=== PATIENT | male | born 1960 | race Caucasian/White ===

== ENCOUNTER 2016-07-10 11:51 | Emergency (ER) | payer MEDICAID ==
[2016-07-10 13:37] LABS: BASOPHILS 0.2 % (0.0-2.0); EOSINOPHILS 0.6 % (0-7); HEMATOCRIT 47.4 % (42.0-54.0); HEMOGLOBIN 16.1 g/dL (13.5-17.5); IMMATURE GRANULOCYTES 0.3 % (0-5); MCH 32.3 pg (26.0-34.0); MCV 95.2 fL (80.0-100.0); MEAN PLATELET VOLUME 10.6 fL (7.4-10.4); MONOCYTES 8.1 % (2-11); NEUTROPHILS 71.8 % (40-80); PLATELET COUNT 238 10x3/uL (130-400); RBC 4.98 10x6/uL (4.20-6.10); RDW 12.5 % (11.5-14.5); WBC 9.4 10x3/uL (4.8-10.8)
== END 2016-07-10 15:40 | disposition home or self-care (01) ==
LOC: D.ER 11:51
PROVIDERS: Emergency Medicine
DX: J20.9 Acute bronchitis, unspecified (principal); S20.211A Contusion of right front wall of thorax, initial encounter; W19.XXXA Unspecified fall, initial encounter; Y93.9 Activity, unspecified; Y92.019 Unspecified place in single-family (private) house as the place of occurrence of the external cause

== ENCOUNTER 2018-12-28 19:07 | Emergency (ER) | payer MEDICAID ==
[~2018-12-28] VITALS: Ht 182.9 cm; Wt 77.3 kg
[2018-12-28 19:18] VITALS: Ht 182.9 cm; Wt 77.3 kg
[2018-12-28] MEDS ORDERED: KEFLEX500 MG PO (19:19)
[2018-12-28] MEDS ORDERED: SULFAMETHOXAZOL1 TA2 PO (19:19)
[2018-12-28] MEDS ORDERED: ULTRAM50 MG PO (19:19)
[2018-12-28] MEDS ORDERED: HYDROCODONE-A1 UDTA2 PO (20:05)
[2018-12-28 20:21] VITALS: BP 108/61
== END 2018-12-28 20:23 | disposition home or self-care (01) ==
LOC: D.ER 19:07
DX: L02.413 Cutaneous abscess of right upper limb (principal)